=== PATIENT | female | born 1970 | race African-American/Black ===

== ENCOUNTER 2024-05-25 15:51 | Inpatient (IN) | payer BC ==
[2024-05-25 16:55] LABS: #Basophils 0.04 10x3/uL (0.0-0.2); %Basophils 0.4 % (0.0-1.0); %Eosinophils 1.9 % (0.0-10.0); %Lymphocytes 25.5 % (21.0-51.0); %Monocytes 5.1 % (0.0-10.0); %Neutrophils 66.8 % (42.0-75.0); Hematocrit 36.3 % (36.0-47.0); Hemoglobin 11.1 g/dL (12.0-16.0); Mean Corpuscular HGB CONC 30.6 g/dL (32.0-36.0); Mean Corpuscular Hemoglobin 19.4 pg (27.0-31.0); Mean Corpuscular Volume 63.4 fL (78.0-98.0); Mean Platelet Volume 10.8 fL (7.4-10.4); Platelet Count 294 10x3/uL (130-400); RBC Distribution Width 15.8 % (11.5-14.5); Red Blood Cell (RBC) Count 5.73 mill/uL (4.20-5.40)
[2024-05-25 16:59] LABS: ALT (SGPT) 19 U/L (8-55); AST (SGOT) 14 U/L (5-34); Albumin 3.8 g/dL (3.5-5.0); Alkaline Phosphatase 97 U/L (40-110); Anion Gap 16 mmol/L (10-20); BUN (Urea Nitrogen) 23 mg/dL (9.8-20.1); Bilirubin, Total 0.6 mg/dL (0.2-1.2); Calc. Creatinine Clearance 0 mL/min (70-130); Calcium 9.9 mg/dL (7.8-10.44); Carbon Dioxide 21 mmol/L (22-29); Chloride 101 mmol/L (98-107); Estimated GFR 52; Globulin 3.7 g/dL (2.4-3.5); Glucose 248 mg/dL (70-105); Potassium 4.6 mmol/L (3.5-5.1); Protein, Total 7.5 g/dL (6.0-8.3); Sodium 133 mmol/L (136-145)
[2024-05-25 17:29] LABS: Anisocytosis SLIGHT = 6-15 cells HPF (0-5); Hypochromia SLIGHT = 6-15 cells HPF (0-5); Microcytosis MODERATE=15-30 cells HPF (0-5); Platelet Adequacy Comment Platelets Normal; Polychromasia SLIGHT = 2-3 cells HPF (0-2); Reflex for Review?? YES
[2024-05-25 18:48] LABS: Troponin I Less than 0.010 ng/mL (< 0.028)
[2024-05-25 18:56] LABS: Actual Bicarbonate (HCO3v) 18.9 mEq/L (22-28); Base Excess -3.9 mEq/L (-2.0 to +3.0); Calcium, Ionized (venous) 1.04 mmol/L (1.16-1.32); Chloride (VBG) 101 mmol/L (98-106); Hematocrit-VBG 33 % (36.0-47.0); Hemoglobin (Hb) 11.3 g/dL (11.7-16.0); Sodium 134 mmol/L (133-146); pH (venous) 7.453 (7.32-7.43)
[2024-05-25 19:43] LABS: Bilirubin Negative (Negative); Blood, Urine Negative (Negative); CAUTI Indications for Culture Acute Hematuria; Clarity Clear (Clear); Glucose, Urine (Dipstick) 200 mg/dL (Negative); Ketone, Urine Negative (Negative); Leukocyte Negative Leu/uL (Negative); Nitrite Negative (Negative); Protein, Urine (Dipstick) 200 mg/dL (Neg-Trace); RBC/HPF 0-3 HPF (0-3); Specific Gravity, Urine 1.026 (1.002-1.036); Squamous Epithelial 0-3 HPF (0-3); Urobilinogen Normal mg/dL (Less than 2); WBC/HPF 0-3 HPF (0-3); pH, Urine 5.5 (5.0-9.0)
[2024-05-25 19:44] LABS: Bacteria/HPF 1+ HPF (None Seen)
[2024-05-25 19:45] LABS: Urine Culture Reflex No No
[2024-05-25] MEDS ORDERED: Acetaminophen 650 MG Suppository PR PRN (20:57)
[2024-05-25] MEDS ORDERED: Ondansetron ODT 4 MG TAB PO PRN (20:57)
[2024-05-25] MEDS ORDERED: Ondansetron PF 4 MG/2 ML Vial IVP PRN (20:57)
[2024-05-25] MEDS ORDERED: Aspirin Chewable 81 MG TAB ONE (21:17)
[2024-05-25 23:03] VITALS: BMI 32.5
[2024-05-25] MEDS ORDERED: Nitroglycerin 0.4 MG TAB (25 Tab Bottle) SL PRN (23:59)
[2024-05-26 00:29] LABS: Troponin I Less than 0.010 ng/mL (< 0.028)
[2024-05-26] MEDS: Acetaminophen 325 MG TAB PO SCH (01:12)
[2024-05-26 01:58] LABS: Troponin I Less than 0.010 ng/mL (< 0.028)
[2024-05-26] MEDS ORDERED: Acetaminophen 325 MG TAB PO PRN ×2 (02:43→02:44)
[2024-05-26] MEDS ORDERED: Dextrose 50% Abboject 50 ML SYRINGE SLOW IVP PRN (03:19)
[2024-05-26] MEDS ORDERED: Dextrose 5% in Water 1,000 ML IV PRN (03:19)
[2024-05-26] MEDS ORDERED: Glucagon 1 MG/ML KIT IM PRN (03:19)
[2024-05-26] MEDS: Sodium Chloride 0.9% 1,000 ML IV SCH ×2 (04:39→16:38)
[2024-05-26 04:59] LABS: #Basophils 0.04 10x3/uL (0.0-0.2); %Basophils 0.5 % (0.0-1.0); %Eosinophils 2.9 % (0.0-10.0); %Lymphocytes 30.2 % (21.0-51.0); %Monocytes 6.9 % (0.0-10.0); %Neutrophils 59.1 % (42.0-75.0); Hematocrit 33.8 % (36.0-47.0); Hemoglobin 10.3 g/dL (12.0-16.0); Mean Corpuscular HGB CONC 30.5 g/dL (32.0-36.0); Mean Corpuscular Hemoglobin 19.7 pg (27.0-31.0); Mean Corpuscular Volume 64.6 fL (78.0-98.0); Mean Platelet Volume 11.7 fL (7.4-10.4); Platelet Count 237 10x3/uL (130-400); RBC Distribution Width 15.5 % (11.5-14.5); Red Blood Cell (RBC) Count 5.23 mill/uL (4.20-5.40)
[2024-05-26 05:07] LABS: Hemoglobin A1c 10.5 % (4.0-6.0)
[2024-05-26 05:16] LABS: Iron 47 ug/dL (50-170); Iron Binding Capacity, Total 295 mcg/dL (265-497)
[2024-05-26 05:27] LABS: Anion Gap 18 mmol/L (10-20); BUN (Urea Nitrogen) 26 mg/dL (9.8-20.1); Calc. Creatinine Clearance 78 mL/min (70-130); Calcium 9.4 mg/dL (7.8-10.44); Carbon Dioxide 17 mmol/L (22-29); Chloride 102 mmol/L (98-107); Estimated GFR 54; Glucose 301 mg/dL (70-105); Iron 68 ug/dL (50-170); Iron Binding Capacity, Total 308 mcg/dL (265-497); Potassium 4.5 mmol/L (3.5-5.1); Sodium 132 mmol/L (136-145)
[2024-05-26] MEDS: Aspirin Chewable 81 MG TAB PO SCH (08:08)
[2024-05-26] MEDS ORDERED: Regadenoson 0.4 MG/5 ML SYRINGE ONE (09:39)
[2024-05-26] MEDS: Insulin Lispro 100 UNIT/ML 10 ML VIAL SC PRN ×2 (17:36→21:08)
[2024-05-26] MEDS: metFORMIN 500 MG TAB PO SCH (17:36)
[2024-05-26] MEDS: Atorvastatin Calcium 20 MG TAB PO SCH (21:09)
[2024-05-26] MEDS: Insulin Glargine 30 UNITS/0.3 ML VIAL SC SCH (21:09)
[2024-05-27] MEDS: Ferrous Gluconate 324 MG TAB PO SCH (08:21)
[2024-05-27] MEDS: Insulin Glargine 30 UNITS/0.3 ML VIAL SC SCH (09:05)
[2024-05-27 09:16] LABS: Anion Gap 13 mmol/L (10-20); BUN (Urea Nitrogen) 13 mg/dL (9.8-20.1); Calc. Creatinine Clearance 116 mL/min (70-130); Calcium 8.9 mg/dL (7.8-10.44); Carbon Dioxide 18 mmol/L (22-29); Chloride 105 mmol/L (98-107); Estimated GFR 86; Glucose 246 mg/dL (70-105); Potassium 5.1 mmol/L (3.5-5.1); Sodium 131 mmol/L (136-145)
[2024-05-28 05:13] LABS: Anion Gap 11 mmol/L (10-20); BUN (Urea Nitrogen) 13 mg/dL (9.8-20.1); Calc. Creatinine Clearance 126 mL/min (70-130); Calcium 8.8 mg/dL (7.8-10.44); Carbon Dioxide 20 mmol/L (22-29); Chloride 109 mmol/L (98-107); Estimated GFR 96; Glucose 199 mg/dL (70-105); Magnesium 1.6 mg/dL (1.6-2.6); Potassium 3.8 mmol/L (3.5-5.1); Sodium 136 mmol/L (136-145)
[2024-05-29 09:17] LABS: Anion Gap 13 mmol/L (10-20); BUN (Urea Nitrogen) 12 mg/dL (9.8-20.1); Calc. Creatinine Clearance 134 mL/min (70-130); Calcium 9.2 mg/dL (7.8-10.44); Carbon Dioxide 24 mmol/L (22-29); Chloride 105 mmol/L (98-107); Estimated GFR 102; Glucose 171 mg/dL (70-105); Sodium 138 mmol/L (136-145)
[2024-05-29] MEDS ORDERED: Communication Order-Pharmacy FS SCH (22:00)
[2024-05-29] MEDS: Sodium Chloride 0.9% 1,000 ML IV SCH (22:12)
[2024-05-30 04:36] VITALS: TEMP 98.1
[2024-05-30 05:45] LABS: Anion Gap 10 mmol/L (10-20); BUN (Urea Nitrogen) 14 mg/dL (9.8-20.1); Calc. Creatinine Clearance 122 mL/min (70-130); Calcium 8.9 mg/dL (7.8-10.44); Carbon Dioxide 25 mmol/L (22-29); Chloride 106 mmol/L (98-107); Estimated GFR 91; Glucose 153 mg/dL (70-105); Potassium 3.8 mmol/L (3.5-5.1); Sodium 137 mmol/L (136-145)
[2024-05-30] MEDS ORDERED: Iopamidol 370 76% 100 ML VIAL ONE (12:06)
[2024-05-30] MEDS ORDERED: fentaNYL 50 mcg/mL 1 mL Vial ONE (12:06)
[2024-05-30] MEDS ORDERED: Heparin 10,000 UNITS/ 10 ML VIAL ONE (12:06)
[2024-05-30] MEDS ORDERED: Midazolam HCl 2 mg/2 ml Vial ONE (12:06)
[2024-05-30] MEDS ORDERED: Nitroglycerin 50 MG/250 ML BOT 250 ML ONE (12:06)
[2024-05-30] MEDS ORDERED: hydrALAZINE 20 MG/ML VIAL ONE (12:43)
[2024-05-30] MEDS ORDERED: Sodium Chloride 0.9% 200 ML IV PRN (12:49)
[2024-05-30] MEDS ORDERED: Labetalol HCl 100 MG/20 ML VIAL ONE (12:51)
[2024-05-30 15:08] LABS: Potassium (VBG) 6.32 mmol/L (3.70-5.30)
[2024-05-30 17:54] VITALS: BP 170/77
== END 2024-05-30 19:45 | disposition home or self-care (01) | DRG 287 ==
LOC: ERS 15:51 → OBSVTOIN 20:45 → ERHOLD 20:45 → 2SW 22:48
PROVIDERS: ADMIT Student in an Organized Health Care Education/Training Program; ATTEND Internal Medicine
PROC: 4A023N7 Measurement of Cardiac Sampling and Pressure, Left Heart, Percutaneous Approach (ICD-10-PCS; principal; 2024-05-30)
PROC: B2111ZZ Fluoroscopy of Multiple Coronary Arteries using Low Osmolar Contrast (ICD-10-PCS; 2024-05-30)
PROC: B2151ZZ Fluoroscopy of Left Heart using Low Osmolar Contrast (ICD-10-PCS; 2024-05-30)
DX: R07.89 Other chest pain (principal); N17.9 Acute kidney failure, unspecified; E11.65 Type 2 diabetes mellitus with hyperglycemia; N18.9 Chronic kidney disease, unspecified; E11.22 Type 2 diabetes mellitus with diabetic chronic kidney disease; I12.9 Hypertensive chronic kidney disease with stage 1 through stage 4 chronic kidney disease, or unspecified chronic kidney disease; D63.1 Anemia in chronic kidney disease; Z88.5 Allergy status to narcotic agent; Z91.040 Latex allergy status; Z88.0 Allergy status to penicillin; Z88.8 Allergy status to other drugs, medicaments and biological substances; Z79.899 Other long term (current) drug therapy; Z90.49 Acquired absence of other specified parts of digestive tract; Z98.890 Other specified postprocedural states
CPT/HCPCS: 36415; 36416; 71045; 78452; 80048; 80053; 81001; 82010; 82728; 82805; 83036; 83540; 83550; 83735; 84484; 85025; 85060; 93005; 93010; 93017; 93306; 93458; 94760; 99152; A9502; C1769; C1887; G0378; J0360; J1644; J1815; J2250; J2785; J3010; J7050; Q9967